=== PATIENT | female | born 1975 | race Caucasian/White ===

== ENCOUNTER 2025-02-04 10:13 | Outpatient (AMB) | payer OTHER, SELFPAY ==
--- OUTSIDE RECORDS SUMMARY | 2025-02-02 08:30 | XMS_ITS | Encounter Summary ---
Author Organization [facility] Address [address] [place] [address] Care Team Providers Care [employer] Field Technician Name Role Phone Lizbeth Liu MD Primary Care Provider [phone] Reason for Referral * Imaging (Routine) - Pending Review Specialty Diagnoses / Procedures Referred By Contac t Referred To Contact Radiology Diagnoses Multiple sclerosis Procedures MR Angio Neck wo and w Contrast Lovely Mendes PA [address] [place] [address] Phone: tel: fax: [address] [address] Phone: tel: Referral ID Status Reason Start Date Expiration Date V isits Requested Visits Authorized [id number] Pending Review 02/03/2025 02/03/2026 1 1 * Imaging (Routine) - Pending Review Specialty Diagnoses / Procedures Referred By Contac t Referred To Contact Radiology Diagnoses Multiple sclerosis Procedures MR Brain wo and w Contrast Mary Pearl MD [address] [place] [address] Phone: tel: fax: [facility] Referral ID Status Reason Start Date Expiration Date V isits Requested Visits Authorized [id number] Pending Review 02/02/2025 02/02/2026 1 1 Encounter Details Date Type Department Care Team (Late st Contact Info) Description 02/02/2025 8:30 AM EST Office Visit [facility] [place] [address] [place] [address] Mary Pearl MD [address] [place] [address] Multiple sclerosis (Primary Dx); High risk medication use Social History Tobacco Use Types Packs/Day Years Used Date Smoking Tobacco: Former Smokeless Tobacco: Never Tobacco Cessation:Counseling Given: Not Answered Comments Unknown Sex and Gender Information Value Date Recorded Sex Assigned at Not on file Legal Sex Female 7:24 AM EST Gender Identity Not on file Sexual Orientation Not on file documented as of this encounter Last Filed Vital Signs Vital Sign Reading Time Taken Comments Blood Pressure 148/86 02/02/2025 8:25 AM EST Pulse 118 02/02/2025 8:25 AM EST Temperature 36.5 C (97.7 F) 02/02/2025 8:25 AM EST Respiratory Rate - - Oxygen Saturation 99% 02/02/2025 8:25 AM EST Inhaled Oxygen Concentration - - Weight - - Height - - Body Mass Index - - documented in this encounter Progress Notes * Mario Ames MA - 02/02/2025 8:30 AM ESTAddended by: MARIO AMES on: 02/03/2025 08:13 AM Modules accepted: Orders * Mary Pearl MD - 02/02/2025 8:30 AM EST [facility] FOR MULTIPLE S[facility]EROSIS CC: MS HPI: Patient is a 49 y.o. year old female who presents for follow-up regarding ongoing management of multiple sclerosis. Disease Summary Date of onset/Initial symptom presentation: 1999 Date of diagnosis of MS: 1999 Disease course at onset: relapsing Current disease course: relapsing Last MS exacerbation: 2000 Previous disease therapies(reason for switch): Avonex (became ) Current disease therapy: Ocrevus Most recent MRI Brain: 12/2023 (lesions consistent with MS, no prior available studies) Most recent MRI Cervical spine: 12/2023- stable Most recent MRI Thoracic spine: CSF: JCV serology result and date: Positive (0.53) 02/2021 MS mimickers: Interval history Patient is here for follow up No new neurological symptom concerning for demyelination since last visit Patient still on Ocrevus tolerating it well Since last visit patient has been overall stable she still have occasional ear fullness we discussed obtaining an MRA with MRI to evaluate for that a IAC loop Balance and gait remained stable. She denies bowel or bladder dysfunction. She denies recent illness/infection. last visit history Patient presents for follow-up. She continues Ocrevus for disease-modifying therapy. She denies new neurological symptoms/symptoms of demyelinating event [facility] Balance/gait, bowel/bladder function all remain normal. She denies any recent illness or infection. Her mom has been battling cancer for the last 3 years and was just recently placed on hospice care.She is helping support and care for her mom during this time. Last office visit history: She does note occasional hearing loss L ear, infection sev years ago w pain and , happens more during allergy season, occ Review of Systems Constitutional: Positive for diaphoresis. Respiratory: Positive for chest tightness. All other systems reviewed and are negative. Patient Active Problem List Diagnosis SNOMED CT(R) Multiple sclerosis (HCC) MULTIPLE SCLEROSIS Current Outpatient Medications: LORazepam (ATIVAN) 0.5 MG tablet, 1 p.o. 1 hour prior to MRI. Repeat 1 tab at time of MRI., Disp: 10 tablet, Rfl: 0 Ocrevus 300 MG/10ML SOLN, INFUSE 600 MG INTRAVENOUSLY EVERY 6 MONTHS, Disp: 20 mL, Rfl: 3 Neuro Exam There were no vitals filed for this visit. General: A&Ox3 Cranial Nerves: PERRL, EOMI without nystagmus, facial strength symmetric, no facial droop, tongue protrusion midline, speech clear, shoulder shrug symmetric Motor: strength 5/5 bilateral UE & LE Sensory: temperature, light touch, and vibratory sense intact throughout Reflexes: 2+/4+ bilateral biceps, plus/4+ bilateral patellar Cerebellar: FTN without dysmetria or ataxia bilaterally, normal Jamel, no dysdiadochokinesia, negative Rhomberg Gait: normal stride, non-ataxic, no circumduction 25 foot timed walk: 4.00. 4.13 (4.31, 4.09 sec last visit)_ A/P: Multiple Sclerosis: Mary Styles is a 49-year-old female with relapsing MS treated with Ocrevus for disease-modifying therapy. She remains stable from a neurological perspective and this will be continued. A. Disease modifying therapy and diagnostic plan: -Continue Ocrevus per [facility] protocol. -Brain MRIs with and without contrast will be performed on an annual basis to ensure radiologic stability. Will obtain an MRA Patient was encouraged to call the office with any questions or concerns. Follow up in 4 months or sooner prn with any new neurological symptoms or concerns. The patient and I discussed the clinical picture during today's appointment. Additional time was spent prior to the actual appointment reviewing records, lab values and imaging results and preparing documentation for today's visit. There was also time spent following the in person visit documenting, arranging for further diagnostic testing and follow-up appointments. The entire time spent in thisprocess was greater than 40 minutes. The majority of the actual [id number] visit was spent counseling the patient with respect to the current neurological picture. Mary Pearl MD documented in this encounter Plan of Treatment Upcoming Encounters Date Type Department Care Team (Late st Contact Info) Description 04/03/2025 8:00 AM EST Appointment [facility] MS Outpatient Rehabilititation - [address] [address] 06/01/2025 8:30 AM EDT Office Visit [facility] MS - [address] [address] Mary Pearl MD [address] [place] [address] Scheduled Orders Name Type Priority Associated Diagnoses Orde r Schedule MR Brain wo and w Contrast Imaging Routine Multiple sclerosis Expected: 02/02/2025, Expires: 02/02/2026 MR Angio Neck wo and w Contrast Imaging Routine Multiple sclerosis Expected: 02/03/2025, Expires: 02/03/2026 documented as of this encounter Visit Diagnoses Diagnosis Multiple sclerosis- Primary High risk medication use documented in this encounter Historical Medications * This list may reflect changes made after this encounter. cholecalciferol (Vitamin D3) 5,000 Units tablet Take 1 tablet (5,000 Units total) by mouth 1 (one) time each day. 12/16/2021 added in this encounter Care Teams [employer] Field Technician Relationship Specialty Start Date End Date Lizbeth Liu MD [address] [place] [address] PCP - General Internal Medicine 04/30/22 documented as of this encounter
--- NOTE | 2025-02-04 09:45 | A.OFFPC_ITS ---
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 Accompanied by: Self / Same As Patient Allergies Sulfa (Sulfonamide Antibiotics) Allergy (Intermediate, Verified 02/04/25 10:16) Hives bupropion Adverse Reaction (Severe, Verified 02/04/25 10:36) agitation, worsened anxiety Medication List - Last Reconciled 02/04/25 by Lizbeth Liu MD cholecalciferol (vitamin D3) 50 mcg PO DAILY hydroxyzine HCl 10 mg PO QAM PRN ocrelizumab (Ocrevus) mg IV Tobacco use date assessed: 02/04/25 Dental Screening Dental Screen Date: 02/04/25 Did you have a dental visit in the last 12 months?: Yes Did you have a dental problem in the last 6 months where you did not have access to dental care?: No Was dental information given to patient?: Patient has dentist HPI HPI Comments History of Present Illness Details The patient is a 49-year-old female presenting [facility] and for a physical examination. Anxiety and Panic Attacks: The patient began seeing a therapist weekly in the springtime, triggered by the stress of her mother's illness and subsequent in July. She reports worsening anxiety, culminating in a significant panic attack . During these epi sodes, she experiences tunnel vision, dizziness, chest pain, and a dissociative feeling, leading her to worry about a cardiac cause. A trial of Wellbutrin was stopped after five days due to a severe adverse reaction causing agitation and manic-like symptoms. She was then prescribed hydroxyzine, which initially caused significant fatigue when taken daily and is now used on an as-needed basis. Multiple Sclerosis: The patient has a history of multiple sclerosis but has not had a flare-up in many years, even during the recent stressful period of her mother's passing. Her condition is managed with Ocrevus infusions twice a year. Her initial MS episode was her worst, presenting with double vision, which required hospitalization for steroids, but this has not recurred. Graves/hyperthyroidism- due for repeat TFTS Pulsatile Tinnitus, Left Ear: For the past year, the patient has experienced intermittent left ear symptoms that have become more frequent recently. She describes sensations of the ear filling up, a whooshing sound, hearing her heartbeat (pulsatile tinnitus), and occasional ringing. An MRI/MRA has been scheduled by her MS specialist to evaluate the ear. Fatigue and Hair Loss: The patient reports significant fatigue, feeling as though she is dragging, and is also experiencing hair loss, which she suspects may be related to stress. She also wonders if these symptoms, along with her anxiety, could be related to perimenopause. Medical History: - Multiple Sclerosis, managed with bi-an nual Ocrevus infusions. - Anxiety disorder with panic attacks. - Adverse reaction to Wellbutrin (buprop ion), causing agitation and manic-like symptoms. - History of optic neuritis with double vision during initial MS flare, required hospitalization for steroids. - History of cardiac palpitations, with a prior stress test and Holter monitor performed approximately five years ago. Medications: - Ocrevus infusion twice a year for Mult iple Sclerosis. - Hydroxyzine as needed for anxiety. - Vitamin D 2000 IU daily. Social History: - The patient's mother in from ovarian cancer, which has been a significant source of stress and grief. - She attends weekly in-person therapy s essions to manage her mental health. - She is and has two sons, ages 9.5 and 5. - Exercise includes activities like a re cent four-mile walk and climbing stairs for laundry without getting winded. - She reports that her water intake coul d be better. Health Maintenance: - Mammogram: Recent mammogram was normal , but noted dense breast tissue- done at [facility] - colonoscopy up to date Review of Systems - Constitutional: Reports fatigue and fe eling like she is dragging. - HEENT: Reports intermittent left ear f ullness, whooshing, pulsatile tinnitus, and ringing. - Cardiovascular: per hpi - Respiratory: Denies shortness of breat h on exertion. - Gastrointestinal: Denies constipation. - Genitourinary: Denies urinary retentio n. - Neurological: Reports dizziness and tu nnel vision with anxiety. - Psychiatric: Reports anxiety, stress, and panic attacks. - Derm: Reports hair loss. Physical Exam - Neck: Carotid arteries clear to auscul tation bilaterally, with no bruits. -- Lymphatic: No cervical lymphadenopath y noted. - HEENT: External ear canals are clear w ith no cerumen impaction or erythema; tympanic membranes are normal. - Oral Cavity: Oropharynx is clear. - Lungs: Clear to auscultation bilateral ly. - Cardiovascular: Normal heart sounds wi th a very soft murmur. - Abdomen: Soft, non-tender, and non-dis tended with normal active bowel sounds. - Extremities: No edema noted; normal dp pulses bilaterally Assessment and Plan 1. Anxiety with panic attacks - The patient's symptoms include chest t ightness and dissociative feelings, which are clearly linked to panic episodes and exacerbated by recent grief. - She was reassured that the absence of these symptoms during exertional activities points away from a cardiac etiology. - Plan is to continue weekly therapy and use hydroxyzine as needed. 2. Fatigue, hair loss, and possible manan menopausal symptoms - The patient reports significant fatigu e and hair loss, which could be related to stress, nutritional deficiencies, or hormonal changes. - A comprehensive metabolic workup is pl anned to investigate. - This includes ordering fasting labs fo r CBC, liver/kidney function, thyroid levels, vitamin D, vitamin B12, iron profile, magnesium, and a morning cortisol level to assess for adrenal function. 3. Multiple Sclerosis - The patient's MS is stable with no rec ent flares, despite significant life stressors. - She is tolerating her bi-annual Ocrevu s infusions well. 4. Left pulsatile tinnitus - The patient reports increasing frequen cy of whooshing sounds in her left ear. - Her MS specialist has appropriately or dered an MRI/MRA to investigate. - The patient was advised of a potential referral to Dr. Lobo, an ENT specialist, if needed. 5. Grave's- check TFTS 6. Health Maintenance - The patient had a recent normal mammog jesse that noted dense breast tissue. - She will discuss possible breast ultr asound screenings with her pipe fitter street service and notify our office if any issues arise and we can order instead. - She is due for her gynecology visit th is winter. - Patient was encouraged to increase flu id intake to at least 48 ounces daily. - Follow up in 6 months Patient Instructions - Please get your lab work done. - You will need to fast for 10 hours bef orehand and go first thing in the morning. - Drink more water, aiming for at least three 16-ounce bottles (48 ounces total) each day. - Continue with your weekly therapy sess ions. - Use your hydroxyzine medication only w hen you need it for anxiety. - Make sure to complete the MRI/MRA of y our ear as scheduled by your MS doctor. - Follow up with your pipe fitter street service this winter. - When you see them, discuss your perime nopausal symptoms and ask about getting a screening breast ultrasound because of your dense breast tissue. - Continue taking your daily Vitamin D s upplement. - Please contact the office if you start having chest tightness or palpitations when you are not feeling anxious, or if any of your symptoms get worse. [facility] Medical History (Updated 02/04/25 @ 11:18 by Lizbeth Liu MD) Fatigue Routine adult health maintenance Multiple sclerosis Hyperthyroidism Graves disease Surgical History (Updated 02/02/25 @ 16:31 by Pura Blank) History of colonoscopy (~10/28/21) Family History (Updated 02/03/25 @ 18:38 by Lizbeth Liu MD) Mother Ovarian cancer Colon polyp Sister Breast cancer Colon polyp Maternal Grandmother Ovarian cancer Paternal Grandfather Stroke Other Diabetes mellitus Primary hypertension Social History Housing: House Patient Tobacco Use Status: Former Tobacco user Years Smoked: 4 years off and on e-Cigarette/Vaping Use: Never Used Current occupational status: other Current occupation: stay at home mom Questionnaire PHQ-9 Over the last 2 weeks, how often have you been bothered by any of the following problems? 1. Little interest or pleasure in doing things: not at all 2. Feeling down, depressed, or hopeless: not at all 3. Trouble falling or staying asleep, or sleeping too much: not at all 4. Feeling tired or having little energy: several days 5. Poor appetite or overeating: not at all 6. Feeling bad about yourself - or that you are a failure or have let yourself or your family down: several days 7. Trouble concentrating on things, such as reading the newspaper or watching television: not at all 8. Moving or speaking so slowly that other people could have noticed. Or the opposite - being so fidgety or restless that you have been moving around a lot more than usual: several days 9. Thoughts that you would be better off or of hurting yourself in some way: not at all Total score: 3 Depression Screening Interpretation: Negative Depression Screening Done: Yes 27071 - PHQ-9 Billing: Yes Source: Developed by Drs. Abhishek Wallace, Leidy Mix, Dennis Rodgers and colleagues, with an educational daniel from [employer]. Thrive Questionnaire Date Thrive assessed: 02/04/25 I am a: Patient What is your living situation today?: I have a steady place to live Within the past 12 months, did the food you bought not last and you didn't have the money to get more?: Never true Within the past 12 months, did you worry whether your food would run out before you got money to buy more?: Never true Do you have trouble paying for medicines?: No Do you have trouble getting transportation to medical appointments?: No Do you have trouble paying your heating and electricity bill?: No Do you have trouble taking care of your child, family member or friend?: No Do you have trouble with day-to-day activities such as bathing, preparing meals, shopping, managing finances, etc.?: No Are you currently unemployed and looking for a job?: No Are you interested in more education?: No Please select the resources that you would like help with: None THRIVE Score: 0 AUDIT C Alcohol Use Questionnaire (AUDIT-C) 1. How often do you have a drink containing alcohol?: Never 3. How often do you have six or more drinks on one occasion?: Never Total Score: 0 JAYCE-7 AMB Questionnaire JAYCE-7 Date JAYCE - 7 assessed: 02/04/25 Feeling nervous, anxious, or on edge: 1 = Several days Not being able to stop or control worryin = Not at all Worrying too much about different things: 0 = Not at all Trouble relaxin = Several days Being so restless that it is hard to sit still: 0 = Not at all Becoming easily annoyed or irritable: 1 = Several days Feeling afraid as if something awful might happen: 1 = Several days Total JAYCE-7 score (0-4 normal; 5-9 mild; 10-14 moderate; 15-21 severe): 4 Source: Developed by Drs. Abhishek Wallace, Leidy Mix, Dennis Rodgers and colleagues, with an educational daniel from [employer]. Physical exam (Primary Care) Vital Signs: Last Vital Signs Temp 96.9 F 02/04/25 10:15 Pulse 93 02/04/25 10:15 Resp 16 02/04/25 10:15 BP 120/80 02/04/25 10:15 Pulse Ox 98 02/04/25 10:15 Oxygen Delivery Method Room Air 02/04/25 10:15 BMI result Body Mass Index 22.7 Tobacco/Smoking Status: Tobacco use Status Tobacco use date assessed 02/04/25 02/04/25 09:45 Patient Tobacco Use Status Former Tobacco user 02/04/25 10:20 e-Cigarette/Vaping Use Never Used 02/04/25 10:20 PHQ-9: PHQ-9 Score PHQ-9: Total score 3 02/04/25 11:19 Depression Screening Interpretation: Negative Thrive Assessment: Date of Thrive Assessment Date Thrive assessed 02/04/25 02/04/25 10:57 Coding Level of Care Code New Pt Prev Care 40-64y(70899) Diagnoses Routine adult health maintenance Z00.00 Hyperthyroidism E05.90 Graves disease E05.00 Multiple sclerosis G35 Fatigue, unspecified type R53.83 Fatigue type: unspecified Additional Codes PHQ-9 - 26257 - PHQ-9 Billing: Yes ([id number]) Assessment & Plan Assessment & Plan (1) Routine adult health maintenance: Code(s): Z00.00 - Encounter for general adult medical examination without abnormal findings Category: Medical (2) Hyperthyroidism: Code(s): E05.90 - Thyrotoxicosis, unspecified without thyrotoxic crisis or storm Category: Medical (3) Graves disease: Code(s): E05.00 - Thyrotoxicosis with diffuse goiter without thyrotoxic crisis or storm Category: Medical (4) Multiple sclerosis: Code(s): G35 - Multiple sclerosis Category: Medical (5) Fatigue: Code(s): R53.83 - Other fatigue Category: Medical Qualifiers: Fatigue type: unspecified Qualified Code(s): R53.83 - Other fatigue Plan see above assessment and plan section for details Orders: Orders Complete Blood Count Auto Diff Today E05.00 - Thyrotoxicosis with diffuse goiter without thyrotoxic crisis or storm, E05.90 - Thyrotoxicosis, unspecified without thyrotoxic crisis or storm, G35 - Multiple sclerosis, R53.83 - Other fatigue, Z00.00 - Encounter for general adult medical examination without abnormal findings TSH reflex Free T4 Today E05.00 - Thyrotoxicosis with diffuse goiter without thyrotoxic crisis or storm, E05.90 - Thyrotoxicosis, unspecified without thyrotoxic crisis or storm, G35 - Multiple sclerosis, R53.83 - Other fatigue, Z00.00 - Encounter for general adult medical examination without abnormal findings Vitamin B12 Today E05.00 - Thyrotoxicosis with diffuse goiter without thyrotoxic crisis or storm, E05.90 - Thyrotoxicosis, unspecified without thyrotoxic crisis or storm, G35 - Multiple sclerosis, R53.83 - Other fatigue, Z00.00 - Encounter for general adult medical examination without abnormal findings Magnesium Today E05.00 - Thyrotoxicosis with diffuse goiter without thyrotoxic crisis or storm, E05.90 - Thyrotoxicosis, unspecified without thyrotoxic crisis or storm, G35 - Multiple sclerosis, R53.83 - Other fatigue, Z00.00 - Encounter for general adult medical examination without abnormal findings Ferritin Today E05.00 - Thyrotoxicosis with diffuse goiter without thyrotoxic crisis or storm, E05.90 - Thyrotoxicosis, unspecified without thyrotoxic crisis or storm, G35 - Multiple sclerosis, R53.83 - Other fatigue, Z00.00 - Encounter for general adult medical examination without abnormal findings Comprehensive Met. Panel Today E05.00 - Thyrotoxicosis with diffuse goiter without thyrotoxic crisis or storm, E05.90 - Thyrotoxicosis, unspecified without thyrotoxic crisis or storm, G35 - Multiple sclerosis, R53.83 - Other fatigue, Z00.00 - Encounter for general adult medical examination without abnormal findings Lipid Panel Today E05.00 - Thyrotoxicosis with diffuse goiter without thyro toxic crisis or storm, E05.90 - Thyrotoxicosis, unspecified without thyrotoxic crisis or storm, G35 - Multiple sclerosis, R53.83 - Other fatigue, Z00.00 - Encounter for general adult medical examination without abnormal findings Vitamin D 25-OH Total Today E05.00 - Thyrotoxicosis with diffuse goiter without thyrotoxic crisis or storm, E05.90 - Thyrotoxicosis, unspecified without thyrotoxic crisis or storm, G35 - Multiple sclerosis, R53.83 - Other fatigue, Z00.00 - Encounter for general adult medical examination without abnormal findings IRON PROFILE Today E05.00 - Thyrotoxicosis with diffuse goiter without thyrotoxic crisis or storm, E05.90 - Thyrotoxicosis, unspecified without thyrotoxic crisis or storm, G35 - Multiple sclerosis, R53.83 - Other fatigue, Z00.00 - Encounter for general adult medical examination without abnormal findings Cortisol Random Today E05.00 - Thyrotoxicosis with diffuse goiter without thyrotoxic crisis or storm, E05.90 - Thyrotoxicosis, unspecified without thyrotoxic crisis or storm, G35 - Multiple sclerosis, R53.83 - Other fatigue, Z00.00 - Encounter for general adult medical examination without abnormal findings
[2025-02-04 10:15] VITALS: BP 120/80; PULSE 93; RESP 16; TEMP 36.1; O2SAT 98; BMI 22.7
--- OUTSIDE RECORDS SUMMARY | 2025-02-04 12:02 | XMS_ITS | Continuity of Care Document ---
Author Organization [facility] [address] [place] [address] Phone [phone] Problems Active Problems Provider Date Graves' disease Cody Collins M.D. Onset: 0 04/17/2023 Keratoconjunctivitis sicca Segundo Babb Onset: 04/21/2024 Multiple sclerosis Cody Collins M.D. Onset : 04/21/2024 Social History Type Date Description Comments Sex Female Sex Unknown ETOH Use Rarely consumes alcohol Tobacco Use Start: Unknown End: Unknown Patient is a former smoker Years ago Allergies and adverse reactions Active Allergies Criticality Reaction Severity Comments Date Sulfamethoxazole Unable to assess criticality 04/17/2023 Medications Active Medications SIG Qnty Indications Ordering Provider Date [id number]/[id number] Solution infuse every 6 months Unknown Vital Signs Date Vital Result Comment 04/21/2024 9:32am BP Systolic 110 mmHg BP Diastolic 70 mmHg Heart Rate 72 /min Height 63 inches 5'3 Weight 133.25 lb BMI (Body Mass Index) 23.6 kg/m2 Results Test Acquired Date Facility Test Result H/L Range N ote TSH Rfx on Abnormal to Free T4 04/21/2024 [facility] TSH Rfx on Abnormal to Free T4 1.160 uIU/mL 0.450-4.50 0 TSH With Reflex To FT4 04/17/2023 [facility] Reference Lab TSH With Reflex To FT4 1.16 uIU/mL (0.4-4.2) Medical Devices Description No Information Available Encounters Type Date Location Provider Dx Diagnosis Office Visit 04/21/2024 9:15a Main Office Cody Collins M.D. E05.00 Thyrotoxicosis w diffuse goiter w/o thyrotoxic crisis Assessments Date Code Description Provider 04/21/2024 E05.00 Graves' disease Cody luque M.D. Plan of Treatment Future Appointment(s):* 04/23/2025 8:15 am - Cody Collins M.D. 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 DRY IRRITATED AND RED EYES Closed 07/23/2023 [facility] [address] [address] [phone]
--- OUTSIDE RECORDS SUMMARY | 2025-02-04 12:02 | XMS_ITS | Clinical Summary ---
Author Organization [facility] Address [address] [place] [address] Care Team Providers Care Gas Plant Dispatcher Name Role Phone Lizbeth Liu MD Primary Care Provider +1- [phone] Allergies Active Allergy Reactions Criticality Noted Date Comments Sulfa Antibiotics Hives 04/16/2020 Medications Medication Sig Dispensed Refills Start Date End Date Status Ocrevus 300 MG/10ML SOLN INFUSE 600 MG INTRAVENOUSLY EVERY 6 MONTHS 20 mL 3 02/22/2023 Active LORazepam (ATIVAN) 0.5 MG tablet 1 p.o. 1 hour prior to MRI. Repeat 1 tab at time of MRI. 10 tablet 0 10/08/2023 Active Active Problems Problem Noted Date Diagnosed Date Multiple sclerosis 09/01/2021 Social History Tobacco Use Types Packs/Day Years Used Date Smoking Tobacco: Former Smokeless Tobacco: Never Tobacco Cessation:Counseling Given: Not Answered Sex and Gender Information Value Date Recorded Sex Assigned at Female 03/30/2020 9:54 AM EST Gender Identity Not on file Sexual Orientation Not on file Job Start Date Occupation Industry Not on file Not on file Not on file Last Filed Vital Signs Vital Sign Reading Time Taken Comments Blood Pressure 104/64 10/08/2023 11:29 AM EDT Pulse 80 10/08/2023 11:29 AM EDT Temperature 36.1 C (97 F) 10/08/2023 10:01 AM EDT Respiratory Rate 18 10/08/2023 11:29 AM EDT Oxygen Saturation 97% 10/08/2023 11:29 AM EDT Inhaled Oxygen Concentration - - Weight 58.1 kg (128 lb) 04/16/2023 9:42 AM EST Height 160 cm (5' 3 ) 04/16/2023 9:42 AM EST Body Mass Index 22.67 04/16/2023 9:42 AM EST Plan of Treatment Health Maintenance Due Date Last Done Comments Hepatitis B Vaccines (1 of 3 - 3-dose series) 1977 Hepatitis C Screening 1977 COVID-19 Vaccine (#1) 1977 Depression Screening 1989 Preventative Health Evaluation 1995 DTap / Tdap / Td (1 - Tdap) 02/28/1996 Cervical Cancer Screening (Pap Smear) 1998 Colon Cancer Screening (Colonoscopy) 2022 Influenza Vaccine (#1) 2024 2, 12/26/2019 Pneumococcal Vaccine Aged Out No long er eligible based on patient's age to complete this topic RSV Ped < 20 months Aged Out No longe r eligible based on patient's age to complete this topic Care Teams Gas Plant Dispatcher Relationship Specialty Start Date End Date Lizbeth Liu MD [address] [place] [phone] PCP - General Internal Medicine 09/22/20
--- OUTSIDE RECORDS SUMMARY | 2025-02-04 12:02 | XMS_ITS | Clinical Summary ---
Author Organization [facility] Address [address] [place] [address] Phone Care Team Providers Care Filler Shaker Name Role Phone Lizbeth Liu MD Primary Care Provider [phone]- [phone] Allergies Active Allergy Reactions Criticality Noted Date Comments Sulfa (Sulfonamide Antibiotics) Hives 03/27 Medications ocrelizumab (Ocrevus) 30 mg/mL solution injection INFUSE 300 MG INTRAVENOUSLY ON DAY 1 AND DAY 15 THEN 600 MG EVERY 6 MONTHS STARTING 6 MONTHS AFTER INITIAL DOSE 2 Active cholecalcifero l (Vitamin D3) 5,000 Units tablet Take 1 tablet (5,000 Units total) by mouth 1 (one) time each day. 2 Active Active Problems Problem Noted Date Diagnosed Date Multiple sclerosis 09/01/2021 Encounters Date Type Department Care Team Description 02/02/2025 8:30 AM EST Office Visit [facility] [address] [place] [address] Mary Pearl MD Multiple sclerosis (Primary Dx); High risk medication use from Last 3 Months Medical History Medical History Date Comments MS (multiple sclerosis) DX:MS (m ultiple sclerosis) (HCC) Hypothyroidism DX:Hypothyroidis m Arthritis 08/2020 DX:Arthritis Social History Tobacco Use Types Packs/Day Years Used Date Smoking Tobacco: Former Smokeless Tobacco: Never Tobacco Cessation:Counseling Given: Not Answered Comments Unknown Sex and Gender Information Value Date Recorded Sex Assigned at Not on file Legal Sex Female 7:24 AM EST Gender Identity Not on file Sexual Orientation Not on file Obstetrics History Last Filed Vital Signs Vital Sign Reading Time Taken Comments Blood Pressure 148/86 02/02/2025 8:25 AM EST Pulse 118 02/02/2025 8:25 AM EST Temperature 36.5 C (97.7 F) 02/02/2025 8:25 AM EST Respiratory Rate 18 10/03/2024 10:47 AM EDT Oxygen Saturation 99% 02/02/2025 8:25 AM EST Inhaled Oxygen Concentration - - Weight 59.9 kg (132 lb) 08/04/2024 8:32 AM EDT Height 160 cm (5' 3 ) 08/04/2024 8:32 AM EDT Body Mass Index 23.38 08/04/2024 8:32 AM EDT Plan of Treatment Upcoming Encounters Date Type Department Care Team (Late st Contact Info) Description 04/03/2025 8:00 AM EST Appointment [facility] - [address] [phone] 06/01/2025 8:30 AM EDT Office Visit [facility] - [address] [phone] Mary Pearl MD [address] [place] [address] Health Maintenance Due Date Last Done Comments Breast Cancer Screening 1977 Colorectal Cancer Screening: Colonoscopy 1977 DTaP,Tdap,and Td Vaccines (1 - Tdap) 02/28/1996 Hepatitis B Vaccines (1 of 3 - 19+ 3-dose series) 02/28/1996 Cervical Cancer Screening: P ap Smear 1998 HIV Screening 03/04/2022 Hepatitis C Screening 03/04/2022 Social Influencers of Health Screening 03/04/2022 Depression Screening 03/26/2024 COVID-19 Vaccine (1 - 2024-2 6 season) 2024 Influenza Vaccine (#1) 2024 3, 01/06/2022, 12/26/2019 RSV Immunization Adult Patients (1 - 1-dose 75+ series) 02/28/2052 HIB Vaccines Aged Out No longer eligi ble based on patient's age to complete this topic HPV Vaccines Aged Out No longer eligi ble based on patient's age to complete this topic Hepatitis A Vaccines Aged Out No long er eligible based on patient's age to complete this topic IPV Vaccines Aged Out No longer eligi ble based on patient's age to complete this topic MMR Vaccines Aged Out No longer eligi ble based on patient's age to complete this topic Meningococcal ACWY Vaccine Aged Out N o longer eligible based on patient's age to complete this topic Meningococcal B Vaccine Aged Out No l onger eligible based on patient's age to complete this topic Pneumococcal Vaccine: Pediatrics (0 to 5 Years) and At-Risk Patients (6 to 49 Years) Aged Out No longer eligible b ased on patient's age to complete this topic RSV Immunization Patients Under 20 months Aged Out No longer eligible b ased on patient's age to complete this topic Varicella Vaccines Aged Out No longer eligible based on patient's age to complete this topic Insurance [facility] Care Teams Filler Shaker Relationship Specialty Start Date End Date Lizbeth Liu MD [address] [place] [address] PCP - General Internal Medicine 04/30/22
== END 2025-02-04 10:57 | disposition home or self-care (01) ==
LOC: HO.HMCHD 10:14
PROVIDERS: PCP Internal Medicine; Visit Provider Internal Medicine
DX: Z00.00 Encounter for general adult medical examination without abnormal findings (principal); E05.90 Thyrotoxicosis, unspecified without thyrotoxic crisis or storm; E05.00 Thyrotoxicosis with diffuse goiter without thyrotoxic crisis or storm; G35.D Multiple sclerosis, unspecified; R53.83 Other fatigue

== ENCOUNTER → 2025-02-04 10:13 | Outpatient (BNVA) | payer OTHER, SELFPAY | PROVIDERS: PCP Internal Medicine; Visit Provider Internal Medicine | DX: Z00.00 Encounter for general adult medical examination without abnormal findings (principal); E05.00 Thyrotoxicosis with diffuse goiter without thyrotoxic crisis or storm; G35.D Multiple sclerosis, unspecified; R53.83 Other fatigue; F41.9 Anxiety disorder, unspecified; F41.0 Panic disorder [episodic paroxysmal anxiety]; H93.A2 Pulsatile tinnitus, left ear; Z13.31 Encounter for screening for depression; Z13.39 Encounter for screening examination for other mental health and behavioral disorders | CPT/HCPCS: 96127 ==

== ENCOUNTER 2025-02-23 08:43 | Outpatient (REF) | payer OTHER, SELFPAY ==
--- OUTSIDE RECORDS SUMMARY | 2025-02-23 09:25 | XMS_ITS | Clinical Summary ---
Author Organization [facility] Address [address] [place] [address] Care Team Providers Care Jig Boring Machine Operator For Metal Name Role Phone Lizbeth Liu MD Primary Care Provider +1- [phone] Allergies Active Allergy Reactions Criticality Noted Date [...] age to complete this topic Care Teams Jig Boring Machine Operator For Metal Relationship Specialty Start Date End Date Lizbeth Liu MD [address] [place] [phone] PCP - General Internal Medicine 09/22/20
--- OUTSIDE RECORDS SUMMARY | 2025-02-23 09:25 | XMS_ITS | Clinical Summary ---
Author Organization [facility] Address [address] [place] [address] Phone Care Team Providers Care Railroad Wheels And Axles Inspector Name Role Phone Lizbeth Liu MD Primary Care Provider +1- [phone] Allergies Active Allergy Reactions Criticality Noted Date [...] Description 02/02/2025 8:30 AM EST Office Visit [facility] for [place] [address] [place] [address] Mary Pearl MD Multiple sclerosis [...] Info) Description 04/03/2025 8:00 AM EST Appointment [facility] - [address] [phone] 06/01/2025 8:30 AM EDT Office Visit [facility] - [address] [phone] Mary Pearl MD [address] [place] [address] Health Maintenance Due Date Last Done Comments [...] patient's age to complete this topic Insurance [facility] Care Teams Railroad Wheels And Axles Inspector Relationship Specialty Start Date End Date Lizbeth Liu MD [address] [place] [address] PCP - General Internal Medicine 04/30/22
--- OUTSIDE RECORDS SUMMARY | 2025-02-23 09:25 | XMS_ITS | Continuity of Care Document ---
Author Organization [facility] [address] [facility] [address] [place] [address] Phone [phone] Problems Active Problems Provider Date Graves' disease [...] Medications SIG Qnty Indications Ordering Provider Date [id number]/10ML Solution infuse every 6 months Unknown Vital [...] 0 TSH With Reflex To FT4 04/17/2023 [facility] Reference Lab TSH With Reflex To [...] DRY IRRITATED AND RED EYES Closed 07/23/2023 [facility] [address] [address] [phone]
[2025-02-23 10:48] LABS: MANUAL DIFF FLAG NO
[2025-02-23 11:14] LABS: Hematocrit 40.1 % (37.0-47.0); Hemoglobin 13.3 g/dl (12.0-16.0); Imm Gran Abs Auto 0.00 X10*3/uL (0.00-0.03); Imm Gran Pct Auto 0.0 % (0.0-0.4); Lymphocytes Absolute Auto 1.3 X10*3/uL (1.2-4.9); Mean Corpuscular HGB Conc 33.2 g/dl (31.0-35.0); Mean Corpuscular Hemoglobin 30.6 pg (27.0-33.0); Mean Corpuscular Volume 92.4 fL (80.0-98.0); NRBC Abs Auto 0.000 X10*3/uL (0.0-0.012); NRBC Pct Auto 0.0 /100WBC (0.0-0.2); Platelet Count 339 X10*3/uL (160-400); Red Blood Count 4.34 X10*6/uL (4.20-5.50); White Blood Count 4.0 X10*3/uL (4.8-10.8)
[2025-02-23 11:34] LABS: Alanine Aminotransferase 21 U/L (0-31); Albumin Level 4.6 g/dL (3.5-5.0); Alkaline Phosphatase 83 U/L (39-117); Anion Gap 10 (12-20); Aspartate Amino Transferase 28 U/L (5-31); Blood Urea Nitrogen 15 mg/dL (9-16); Calcium 9.0 mg/dL (8.4-10.2); Carbon Dioxide 28 mmol/L (22-29); Chloride 109 mmol/L (96-108); Cholesterol 158 mg/dL (<200); Estimated Glomerular Filt Rate > 60; HDL Cholesterol 38 mg/dL (>40); Iron 59 mcg/dL (30-160); Magnesium 2.0 mg/dL (1.6-2.6); Percent Iron Saturation 23 % (15-50); Potassium 4.4 mmol/L (3.3-5.1); Sodium 143 mmol/L (135-145); Total Iron Binding Capacity 257 mcg/dL (228-428); Total Protein 6.9 g/dL (6.5-8.0); Triglycerides 126 mg/dL (<150); Unsaturated Iron Binding 198 ug/dL
[2025-02-23 11:36] LABS: Ferritin 55 ng/mL (10-250)
[2025-02-23 12:07] LABS: Vitamin B12 542 pg/mL (200-900)
== END 2025-02-23 08:44 | disposition home or self-care (01) ==
LOC: HO.HMGCLDS 08:43
PROVIDERS: PCP Internal Medicine; Visit Provider Internal Medicine
DX: Z00.00 Encounter for general adult medical examination without abnormal findings (principal); E05.00 Thyrotoxicosis with diffuse goiter without thyrotoxic crisis or storm; G35.D Multiple sclerosis, unspecified; R53.83 Other fatigue; Z13.21 Encounter for screening for nutritional disorder; Z13.0 Encounter for screening for diseases of the blood and blood-forming organs and certain disorders involving the immune mechanism
CPT/HCPCS: 36415; 80053; 80061; 82306; 82533; 82607; 82728; 83540; 83735; 84443; 85025